=== PATIENT | female | born 1945 | race Two or more races ===

== ENCOUNTER 2017-11-02 06:37 | Day surgery (SDC) | payer MEDICARE, OTHER ==
[2017-10-29 09:48] LABS: BASOPHILS % (AUTO) 1.4 % (0.0-2.0); EOSINOPHILS % (AUTO) 1.2 % (0.0-3.0); HEMATOCRIT 40.9 % (37.0-47.0); HEMOGLOBIN 13.3 G/DL (12.0-16.0); MEAN CORPUSCULAR VOLUME 92 FL (80-99); MONOCYTES % (AUTO) 8.7 % (1.0-10.0); NEUTROPHILS % (AUTO) 57.7 % (45.0-75.0); PLATELET COUNT 301 K/UL (150-450); RED BLOOD COUNT 4.43 M/UL (4.20-5.40); RED CELL DISTRIBUTION WIDTH 11.8 % (11.6-14.8); WHITE BLOOD COUNT 7.7 K/UL (4.8-10.8)
[2017-10-29 09:58] LABS: ANION GAP 4 mmol/L (5-15); BLOOD UREA NITROGEN 19 mg/dL (7-18); CARBON DIOXIDE 31 MMOL/L (21-32); CHLORIDE 106 MMOL/L (98-107); CREATININE 0.9 MG/DL (0.55-1.30); POTASSIUM 4.4 MMOL/L (3.5-5.1); SODIUM 141 MMOL/L (136-145)
--- NOTE | 2017-10-29 19:52 | Cardiology Report ---
APPROVED REPORT EKG Measurement Heart [id number] Normal sinus rhythm Possible Anterior infarct, age undetermined Abnormal ECG
--- NOTE | 2017-10-31 14:56 | Pre-Procedure Note/Attestation ---
Pre-Procedure Note/Attestation Complete Prior to Procedure Planned Procedure: left Procedure Narrative: phaco with IOL Indications for Procedure Pre-Operative Diagnosis: cataract Attestation I attest that I discussed the nature of the procedure; its benefits; risks and complications; and alternatives (and the risks and benefits of such alternatives ), prior to the procedure, with the patient (or the patient's legal investment representative). I attest that, if there was a reasonable possibility of needing a blood transfusion, the patient (or the patient's legal investment representative) was given the [facility] standardized written summary, pursuant to the [employer] [place] Blood Safety Act ([place] Health and Safety Code # 1645, as amended). I attest that I re-evaluated the patient just prior to the surgery and that there has been no change in the patient's H&P, except as documented below: FAIZA LEDEZMA Oct 31, 2017 14:56
--- NOTE | 2017-10-31 15:12 | Opthalmology H&P ---
Ophthalmology H&P H&P Chief Complaint: decreased vision in left eye HPI Vision Affects Ability to: read, focus/use eyes together, manage personal affairs HPI Narrative blurry vision Exam Visual Acuity: OD: 20/25 OS: 200 Tension: OD: 16 OS: 14 Eye Exam: normal OU: external exam, palpebral fissure-width, marginal reflex distance, levator function, corneas, anterior chambers, fundus exam; findings: lens - OD: NS OS: NS Assessment/Plan Diagnosis: (1) Nuclear age-related cataract, left eye Treatment Plan: cataract extraction w/ lens implant Goals of Treatment: improvement of vision, enhance quality of life Attestation Attestation The risks and benefits of the surgery as well as alternative procedures were explained to the patient in detail. FAIZA LEDEZMA Oct 31, 2017 15:12
--- NOTE | 2017-10-31 19:30 | Pre-op HX & Phy Repo 2 SIG ---
DATE OF ADMISSION: 11/02/2017 PRESURGICAL INTERNAL MEDICINE HISTORY AND PHYSICAL DATE OF EVALUATION: 10/29/2017. DATE OF SURGERY: Scheduled for 11/02/2017. REFERRING PHYSICIAN: Matt Jo M.D. HISTORY OF PRESENT ILLNESS: The patient is a 72-year-old female, who was evaluated in outpatient department of [facility]. The patient has a cataract, left eye. Please see History and Physical by slubber machine operator, Dr. Matt Jo. PAST MEDICAL HISTORY AND REVIEW OF SYSTEMS: Remarkable for hypertension, brain aneurysm rupture 10 years ago and surgery, history of myocardial infarction 8 years ago, hypothyroidism, chronic constipation, bronchial asthma 20 years ago, osteoarthritis knee, and renal failure. The patient has degenerative joint disease . PAST SURGICAL HISTORY: Thyroidectomy, cholecystectomy, and brain aneurysm. FAMILY HISTORY: Mother had hypertension and heart attack. Father with alcoholism. ALLERGIES: Not known. PRESENT MEDICATIONS: Include baby aspirin, levothyroxine 125 mcg daily, atorvastatin 20 mg, metoprolol 25 mg, vitamin E, warfarin 5 mg, and multivitamin. HABITS: Denies history of smoke or alcohol habit. No street drugs. PHYSICAL EXAMINATION: GENERAL: Alert, well-developed and well-nourished female, in her 70's, in no acute distress. VITAL SIGNS: Blood pressure 159/73, temperature 97.0, pulse 73, and respirations 18. O2 saturation 98% on room air. SKIN: Dry, clear and warm. No rashes. No open wound or ulcer. HEENT: Head is normocephalic. Ears clear. Eyes, full description per Dr. Matt Jo. Mouth, clear and moist. No dentures. NECK: Supple. No jugular vein distention. Carotids artery +2. Trachea midline. CHEST: No deformity or asymmetry. LUNGS: Clear. No rales or rhonchi. HEART: Sinus rhythm. No ectopy. No murmur. No S3, S4. ABDOMEN: Soft. Obese. large ventral hernia reducible. EXTREMITIES: Degenerative joint disease of knee. No calf tenderness. No edema. No varicose vein. GENITOURINARY: No dysuria. No CVA tenderness. NEUROLOGIC: No tremor or nystagmus. History of brain aneurysm rupture. LABORATORY AND DIAGNOSTIC DATA: ECG, normal sinus rhythm. Possible old anterior IA. The patient to be NPO after midnight, 11/02/2017. Lab work pending. IMPRESSION: 1. Cataract, left eye. 2. Hypertension. 3. History of brain aneurysm. 4. Obesity. 5. Umbilical hernia. 6. Hypothyroidism, post thyroidectomy. 7. Degenerative joint disease of knee. PLAN: Cataract extraction, left eye with intraocular lens implant per Dr. Matt Jo on 11/02/2017. CONCLUSION: The patient is a 72-year-old female with multiple medical problems include hypertension, history of brain aneurysm, hypothyroidism, and obesity. The patient's lab work pending. The patient to be NPO before surgery. The patient's condition optimized for surgery. Thank you very much, Dr. Jo, for privilege to participate in presurgical care of this patient. Tyler Ferrari M.D. DR: SILVANO JOB#: [id number] CC:
[~2017-11-02] VITALS: Ht 154.9 cm; Wt 77.1 kg
[2017-11-02] VITALS (10 sets, daily range): BP systolic 162–180; BP diastolic 73–88
[~2017-11-02 06:37] MED LIST: ASPIR 8181 MG ORAL; ATORVASTATIN CA20 MG ORAL; LEVOTHYROXINE125 MCG ORAL; METOPROLOL TART25 MG ORAL; MULTIVITAMINS1 EA14 PO; VITAMIN E200 UNI4 PO; WARFARIN SODIUM5 MG ORAL
[2017-11-02] MEDS ORDERED: LR 1000ml ONE (06:38)
[2017-11-02] MEDS ORDERED: Lidocaine 2% MPF 5ml Vial INJ ONE (06:49)
[2017-11-02] MEDS ORDERED: BSS 500ml btl ONE (06:49)
[2017-11-02] MEDS ORDERED: BSS 15ml BTL ONE (06:49)
[2017-11-02] MEDS ORDERED: EPINEPHrine 1mg/1ml Amp ONE (06:49)
[2017-11-02] MEDS ORDERED: Povidone-Iodine 5% opth solution ONE (06:50)
[2017-11-02] MEDS ORDERED: Sodium Hyaluronate 14 mg/ml 0.85ml ONE (06:50)
[2017-11-02] MEDS ORDERED: Proparacaine 0.5% Opth Soln 15ml LEFT EYE ONE (07:00)
[2017-11-02] MEDS ORDERED: Maxitrol Opth Oint 3.5gm ONE (07:00)
[2017-11-02] MEDS ORDERED: Pred Forte 1% Opth Susp 1ml ONE (07:00)
[2017-11-02] MEDS ORDERED: Akten 3.5% 1ml Btl LEFT EYE ONE (07:00)
[2017-11-02] MEDS ORDERED: Pilocarpine 2% Opth 15ml Soln ONE (07:00)
[2017-11-02] MEDS ORDERED: Tetracaine 0.5% Opth 4ml Soln LEFT EYE ONE (07:00)
[2017-11-02] MEDS ORDERED: Dexamethasone 4mg/ml vial ONE (07:00)
[2017-11-02] MEDS ORDERED: MULTAQ400 MG ORAL (08:55)
[2017-11-02] MEDS: Tropicamide 1% Opth 15ml Soln LEFT EYE SCH ×3 (08:59→09:20)
[2017-11-02] MEDS: Tobramycin Op Soln 0.3% 5ml LEFT EYE SCH ×3 (09:00→09:22)
[2017-11-02] MEDS: Phenylephrine 10% Opth Soln 5ml LEFT EYE SCH ×3 (09:00→09:21)
[2017-11-02] MEDS: Cyclopentolate 1% Opth Sol 2ml LEFT EYE SCH ×3 (09:00→09:21)
[2017-11-02] MEDS: Diclofenac Sod 0.1% Op Soln LEFT EYE SCH ×3 (09:00→09:22)
[2017-11-02] MEDS ORDERED: Midazolam 2mg/2ml Inj ONE (10:43)
[2017-11-02] MEDS ORDERED: Lidocaine 1% MPF 10mg/ml 5ml ONE (10:44)
--- NOTE | 2017-11-02 11:03 | Anethesia Preoperative Eval ---
Anesthesia Pre-op PMH/ROS General Date of Evaluation: Nov 02, 2017 Time of Evaluation: 10:35 Anesthesiologist: Pam Garces CRNA ASA Score: ASA 3 Mallampati Score Class I : Soft palate, uvula, fauces, pillars visible Class II: Soft palate, uvula, fauces visible Class III: Soft palate, base of uvula visible Class IV: Only hard plate visible Mallampati Classification: Class II Surgeon: Deysi Diagnosis: LEFT eye cataract Surgical Procedure: LEFT eye cataract extraction IOL Anesthesia History: none Family History: no anesthesia problems Allergies: Coded Allergies: No Known Allergies (Unverified , 10/29/17) Medications: see eMAR Past Medical History Cardiovascular: Reports: HTN; Denies: CAD, CO, valve dz, arrhythmia, other Pulmonary: Denies: asthma, COPD, TIM, other Gastrointestinal/Genitourinary: Reports: GERD; Denies: CRI, ESRD, other Neurologic/Psychiatric: Reports: other - Cerebral aneurysm; Denies: dementia, CVA, depression/anxiety, TIA Endocrine: Reports: other - Thyroid CA HEENT: Reports: cataract (L), cataract (R); Denies: glaucoma, HO-CHUNK (L), HO-CHUNK (R), other Hematology/Immune: Denies: anemia, DVT, bleeding disorder, other Musculoskeletal/Integumentary: Reports: OA; Denies: RA, DJD, DDD, edema, other PMH Narrative: As above PSxH Narrative: RIGHT shoulder surgery, RIGHT hand surgery, cholecystectomy, c/s Anesthesia Pre-op Phys. Exam Physician Exam Last Vital Signs Date Time Temp Pulse Resp B/P (MAP) Pulse Ox O2 Delivery O2 Flow Rate FiO2 11/02/17 09:13 Room Air 11/02/17 09:02 97.0 77 20 163/87 (112) 99 97.0 Constitutional: NAD Neurologic: CN 2-12 intact Cardiovascular: RRR Respiratory: CTA Gastrointestinal: S/NT/ND Airway Exam Mallampati Score: Class II MO: full TMD: >3FB ROM: full Teeth: missing Dentures: upper, lower Anesthesia Pre-op A/P Labs see chart Studies Pre-op Studies: EKG - NSR, possible anterior infarct age undetermined Risk Assessment & Plan Assessment: ASA 3 ok to proceed Plan: MAC Status Change Before Surgery: No Pre-Antibiotics Given Within 1 Hr of Incision: No DezPam FOLEY ARTIST Nov 02, 2017 11:03
[2017-11-02] MEDS ORDERED: Propofol 200mg/20ml IV ONE (11:05)
[2017-11-02] MEDS ORDERED: Labetalol 5mg/ml 20ml vial IV PRN (11:15)
--- NOTE | 2017-11-02 12:22 | Immediate Post-Op Evaluation ---
Immediate Post-Op Evalulation Immediate Post-Op Evalulation Procedure: LEFT eye cataract extraction IOL Date of Evaluation: Nov 02, 2017 Time of Evaluation: 11:22 IV Fluids: LR 200 ml Estimated Blood Loss: minimal Blood Pressure Systolic: 179 Blood Pressure Diastolic: 76 Pulse Rate: 74 Respiratory Rate: 19 O2 Sat by Pulse Oximetry: 100 Temperature (Fahrenheit): 98.3 Pain Score (1-10): 0 Nausea: No Vomiting: No Complications none Patient Status: awake, reacts, patent Hydration Status: adequate Given Within 1 Hr of Incision: Pam Michaud CRNA Nov 02, 2017 12:22
--- NOTE | 2017-11-02 12:58 | 48 Hour Post Anesthesia Eval ---
Post Anesthesia Evaluation Procedure: LEFT eye cataract extraction IOL Date of Evaluation: Nov 02, 2017 Time of Evaluation: 12:22 Blood Pressure Systolic: 162 0: 80 Pulse Rate: 72 Respiratory Rate: 15 Temperature (Fahrenheit): 98.3 O2 Sat by Pulse Oximetry: 100 Airway: patent Nausea: No Vomiting: No Pain Intensity: 0 Hydration Status: adequate Cardiopulmonary Status: stable Mental Status/LOC: patient returned to baseline Follow-up Care/Observations: f/u with surgeon Post-Anesthesia Complications: none Follow-up care needed: ready to discharge Pam Garces CRNA Nov 02, 2017 12:58
--- NOTE | 2017-11-05 19:42 | Brief Operative Note ---
Immediate Post Operative Note Operative Note Chief Complaint: blurry vision Pre-op Diagnosis: cataract, OS Procedure: phaco with IOL Post-op Diagnosis: pseudophakia Post-op Diagnosis: same as pre-op Findings: consistent w/pre-op dx studies Surgeon: Deysi Anesthesiologist: Dez Anesthesia: MAC Specimen: none Complications: none Condition: stable Fluids: LR Estimated Blood Loss: none Drains: none Implant(s) used?: Yes FAIZA LEDEZMA Nov 05, 2017 19:42
--- NOTE | 2017-11-05 19:44 | Operative Note - PDOC ---
Operative Note Operative Note Date of Operation/Procedure: Nov 02, 2017 Chief Complaint: blurry vision Pre-op Diagnosis: cataract, OS Procedure: phaco with IOL Post-op Diagnosis: pseudophakia Post-op Diagnosis: same as pre-op Operative Findings: consistent w/pre-op dx studies Surgeon: Deysi Anesthesiologist: Dez Anesthesia: MAC Specimen: none Complications: none Condition: stable Fluids: LR Estimated Blood Loss: none Drains: none Implant(s) used?: Yes Indications for Procedure cataract Description of Procedure This patient has been complaining visually significant cataract in the affected eye with the best corrected visual acuity under moderate glare conditions worse. The patient complains of difficulties with glare in performing activities of daily living and wants to manage personal affairs with comfort and accuracy and see well enough to move with safety at home and outdoors. ~~~ The risks, benefits and alternatives of the procedure were discussed with the patient in the office prior to scheduling surgery. All questions from the patient were answered after the surgical procedure was explained in detail. The risks of the procedure as explained to the patient include, but are not limited to, pain, infection, bleeding, loss of vision, retinal detachment, need for further surgery, loss of lens nucleus, double vision, etc. Alternative procedures were discussed which include, to do nothing or seek a second opinion. Informed consent for this procedure was obtained from the patient. The patient was referred to a primary care physician for a cardiopulmonary clearance prior to surgery, after proper evaluation was done patient was properly scheduled for outpatient surgery. The patient was brought to the operating room where the anesthesiologist established I.V. lines and cardiac monitoring leads. Mild intravenous sedation was administered.The patient was then prepared with a 5% solution of povidone- iodine to the conjunctival fornix and lashes, and a 5% solution of povidone- iodine to the lids and periorbital skin. The patient was then draped in the usual sterile fashion. A lid speculum was then placed in the operative eye. A keratome blade was then used to create a biplanar incision into the anterior chamber. Viscoelastics was then instilled into the anterior chamber. A capsulorrhexis was then fashioned with an utrata forceps. BSS and a cannula were then used to hydrodissect and hydro delineate the lens. Paracentesis incision was made at 3 o'clock with sharp blade. The phacoemulsification unit, after being properly adjusted ~and tested, was then used to emulsify the nucleus followed by the residual cortical material being was aspirated with the irrigation and aspiration unit. Healon was then instilled into the anterior chamber. The corneal wound was then enlarged to the size of the optic with the raphael keratome blade. The intraocular lens was then inspected for right ~ power and size and thought to be satisfactory. Then the lens was gently placed in the capsular bag. Positioning within the capsular bag was confirmed by direct visualization. Optic centration was accomplished with a Sinskey hook. Viscoelastics ~was removed from the anterior chamber using the irrigation and aspiration unit. The corneal wound was then tested for leaks and none were found. The lid speculum were then removed. Sponge and needle counts were correct. An eye patch and shield were placed over the operative eye. The patient was taken to the recovery room in stable condition. There were no complications. The patient tolerated the procedure well. The patient was then transferred to the ambulatory surgery unit in stable and satisfactory condition , was given detailed written instructions and asked to follow up ~in the office the next day. FAIZA LEDEZMA Nov 05, 2017 19:44
== END 2017-11-02 12:50 | disposition home or self-care (01) ==
LOC: SUR 06:37
DX: H25.12 Age-related nuclear cataract, left eye (principal); I10 Essential (primary) hypertension; I25.2 Old myocardial infarction; E89.0 Postprocedural hypothyroidism; K59.09 Other constipation; K21.9 Gastro-esophageal reflux disease without esophagitis; J45.909 Unspecified asthma, uncomplicated; M17.10 Unilateral primary osteoarthritis, unspecified knee; N19 Unspecified kidney failure; Z86.69 Personal history of other diseases of the nervous system and sense organs; E66.9 Obesity, unspecified; K42.9 Umbilical hernia without obstruction or gangrene; Z90.49 Acquired absence of other specified parts of digestive tract
CPT/HCPCS: 36415; 66984; 80048; 85025; 85610; 85730; 93005; J0171; J1100; J2250; J2704; V2632; 94003; 94150